=== PATIENT | female | born 1965 | race Caucasian/White ===

== ENCOUNTER 2018-01-29 17:01 | Emergency (ER) | payer BC ==
[2018-01-29 17:13] VITALS: BP 107/72
--- NOTE | 2018-01-29 17:38 | UC ---
Complaint Female HPI - HPI Summary HPI Summary: Patient with history of recurrent UTIs complains of increased urinary frequency , increased urinary urge and burning with urination 6 days. Patient has been able to attempting to manage symptoms with cranberry supplements and hydration. Denies fever, cough, sore throat, CP, SOB, N/V/D, abdominal pain, change in BM , vaginal symptoms. Medical history is none. Patient states she is postmenopausal. - History Of Current Complaint Chief Complaint: UCGU Stated Complaint: BURNING URINATION Time Seen by Provider: 01/29/18 17:17 Hx Obtained From: Patient ?: No Onset/Duration: Gradual Onset Timing: Intermittent Severity Initially: Moderate Severity Currently: Moderate Pain Intensity: 5 Pain Scale Used: 0-10 Numeric Character: Burning Aggravating Factor(s): Urination Alleviating Factor(s): Nothing Associated Signs And Symptoms: Positive: Negative - Allergies/Home Medications Allergies/Adverse Reactions: Allergies Allergy/AdvReac Type Severity Reaction Status Date / Time No Known Allergies Allergy Verified 01/29/18 17:13 Home Medications: Home Medications Ibuprofen TAB* [Advil TAB*] 200 mg PO Q6H PRN 01/29/18 [History Confirmed ] PMH/Surg Hx/FS Hx/Imm Hx Previously Healthy: Yes - Surgical History Surgical History: Yes Surgery Procedure, Year, and Place: R thyroidectomy - Family History Known Family History: Positive: Other - breast cancer - Social History Alcohol Use: Occasionally Substance Use Type: None Smoking Status (MU): Never Smoked Tobacco Review of Systems Constitutional: Negative Skin: Negative Eyes: Negative ENT: Negative Respiratory: Negative Cardiovascular: Negative Gastrointestinal: Negative Genitourinary: Dysuria, Frequency, Urgency Motor: Negative Neurovascular: Negative Musculoskeletal: Negative Neurological: Negative Psychological: Negative Is Patient Immunocompromised?: No All Other Systems Reviewed And Are Negative: Yes Physical Exam Triage Information Reviewed: Yes Appearance: Well-Appearing Vital Signs: Initial Vital Signs Temp 70 F 01/29/18 17:02 Pulse 66 01/29/18 17:02 Resp 16 01/29/18 17:02 BP 107/72 01/29/18 17:02 Pulse Ox 98 01/29/18 17:02 Vital Signs Reviewed: Yes Eye Exam: Normal Neck exam: Normal Respiratory Exam: Normal Cardiovascular Exam: Normal Abdominal Exam: Normal Musculoskeletal Exam: Normal Neurological Exam: Normal Psychological Exam: Normal Skin Exam: Normal Complaint Female Dx - Course Course Of Treatment: Patient with history of recurrent UTIs complains of increased urinary frequency, increased urinary urge and burning with urination 6 days. Patient has been able to attempting to manage symptoms with cranberry supplements and hydration. Denies fever, cough, sore throat, CP, SOB, N/V/D, abdominal pain, change in BM, vaginal symptoms. Medical history is none. Patient states she is postmenopausal. UA non-definitive. Patient symptomatic. Started on Bactrim here at . Rx for same. Vital signs normal. - Differential Dx/Diagnosis Provider Diagnoses: uti Discharge - Sign-Out/Discharge Documenting (check all that apply): Patient Departure All imaging exams completed and their final reports reviewed: No Studies - Discharge Plan Condition: Stable Disposition: HOME Prescriptions: Sulfamethox/Trimethoprim DS* [Bactrim DS 800/160 TAB*] 1 tab PO BID 10 Days #20 tab Patient Education Materials: Urinary Tract Infection in Women (ED) Referrals: No Primary Care Phys,NOPCP [Primary Care Provider] - Additional Instructions: Take antibiotics as directed. Drink plenty of fluids. Return for any new or worsening symptoms - Billing Disposition and Condition Condition: STABLE Disposition: Home - Attestation Statements Provider Attestation: Per institutional requirements, I have reviewed the chart, however, I was not consulted specifically or made aware of this patient by the midlevel provider. I did not personally evaluate, interact with , or disposition this patient.
[2018-01-29] MEDS ORDERED: Sulfamethox/Trimethoprim DS 800/160* TAB PO ONE (18:02)
[2018-01-30] MEDS ORDERED: Sulfamethox/Trimethoprim DS 800/160* TAB PO ONE (17:40)
== END 2018-01-29 18:15 | disposition home or self-care (01) ==
LOC: UCEAST 17:01
DX: B37.49 Other urogenital candidiasis (principal); Z87.440 Personal history of urinary (tract) infections
CPT/HCPCS: 81003; 87077; 87086; 87186; 99202; A9270-GY; G0463

== ENCOUNTER 2018-05-26 14:40 | Emergency (ER) | payer BC ==
--- NOTE | 2018-05-26 15:11 | UC ---
Complaint Female HPI - HPI Summary HPI Summary: 53-year-old woman comes to clinic today with a chief complaint of urinary frequency urgency and dysuria for several days. She's been drinking quite a bit of water and that helps decrease the dysuria but then it has been worsening again. Does have some intermittent pelvic pain with urination otherwise no abdominal pain no flank pain no fevers or chills. Denies any abnormal vaginal discharge or concern of STI. Bowels been working normally. - History Of Current Complaint Stated Complaint: URINARY COMPLAINT Time Seen by Provider: 05/26/18 15:05 - Allergies/Home Medications Allergies/Adverse Reactions: Allergies Allergy/AdvReac Type Severity Reaction Status Date / Time No Known Allergies Allergy Verified 01/29/18 17:13 PMH/Surg Hx/FS Hx/Imm Hx Previously Healthy: Yes - Surgical History Surgical History: Yes Surgery Procedure, Year, and Place: R thyroidectomy - Family History Known Family History: Positive: Other - breast cancer - Social History Alcohol Use: Occasionally Substance Use Type: None Smoking Status (MU): Never Smoked Tobacco Review of Systems All Other Systems Reviewed And Are Negative: Yes Constitutional: Positive: Negative Skin: Positive: Negative Eyes: Positive: Negative ENT: Positive: Negative Respiratory: Positive: Negative Cardiovascular: Positive: Negative Gastrointestinal: Positive: Negative Genitourinary: Positive: Dysuria, Frequency, Urgency. Negative: Vaginal/Penile Discharge Motor: Positive: Negative Neurovascular: Positive: Negative Musculoskeletal: Positive: Negative Neurological: Positive: Negative Psychological: Positive: Negative Is Patient Immunocompromised?: No Physical Exam Triage Information Reviewed: Yes Appearance: Well-Appearing, No Pain Distress, Well-Nourished Vital Signs Reviewed: Yes Eye Exam: Normal Eyes: Positive: Conjunctiva Clear Neck exam: Normal Neck: Positive: Supple Respiratory: Positive: Lungs clear, Normal breath sounds, No respiratory distress Cardiovascular: Positive: RRR Abdomen Description: Positive: Nontender, Soft Musculoskeletal Exam: Normal Musculoskeletal: Positive: Strength Intact, ROM Intact Neurological Exam: Normal Neurological: Positive: Alert, Muscle Tone Normal Psychological Exam: Normal Psychological: Positive: Age Appropriate Behavior Skin Exam: Normal Complaint Female Dx - Course Course Of Treatment: Patient reports that Bactrim helps with her UTIs. She reports last time she did need a full 7 days therefore I prescribed a total of 10 days to be used complete prescription if necessary. We discussed if condition worsens is any questions or concerns she get reevaluated. - Differential Dx/Diagnosis Provider Diagnosis: UTI (urinary tract infection) Discharge - Sign-Out/Discharge Documenting (check all that apply): Patient Departure All imaging exams completed and their final reports reviewed: No Studies - Discharge Plan Condition: Stable Disposition: HOME Prescriptions: Sulfamethox/Trimethoprim DS* [Bactrim DS 800/160 TAB*] 1 tab PO BID #20 tab Patient Education Materials: Urinary Tract Infection in Women (ED) Referrals: [facility] [Outside] Additional Instructions: FOLLOW UP WITH YOUR DOCTOR IF NOT COMPLETELY IMPROVED. GET RECHECKED FOR ANY WORSENING OF YOUR CONDITION OR QUESTIONS OR CONCERNS. - Billing Disposition and Condition Condition: STABLE Disposition: Home
[2018-05-26 15:15] VITALS: BP 100/68
== END 2018-05-26 15:32 | disposition home or self-care (01) ==
LOC: UCEAST 14:40
DX: N39.0 Urinary tract infection, site not specified (principal)
CPT/HCPCS: 81003; 87086; 99202; G0463

== ENCOUNTER 2019-02-04 16:01 | Emergency (ER) | payer BC, OTHER ==
[2019-02-04 16:42] VITALS: BP 114/72
--- NOTE | 2019-02-04 17:12 | UC ---
Complaint Female HPI - HPI Summary HPI Summary: Patient is a 53yo female presenting with UTI symptoms for the past few hours. She notes history of recurrent UTIs. Notes frequency, urgency, and burning with urination. She took Azo 40 minutes prior to visit and states it has relieved her urgency. She denies fever, chills, nausea, vomiting, abdominal pain, and diarrhea. Denies blood in her urine. Denies flank pain. Denies history of kidney stones. - History Of Current Complaint Chief Complaint: UCGU Stated Complaint: frequent urination Hx Obtained From: Patient Hx Last Menstrual Period: post menopause Onset/Duration: Sudden Onset, Lasting Hours Timing: Constant Severity Initially: Moderate Severity Currently: Mild Pain Intensity: 6 Pain Scale Used: 0-10 Numeric - Allergies/Home Medications Allergies/Adverse Reactions: Allergies Allergy/AdvReac Type Severity Reaction Status Date / Time morphine Allergy Unknown Verified 02/04/19 16:38 Reaction Details PMH/Surg Hx/FS Hx/Imm Hx - Surgical History Surgical History: Yes Surgery Procedure, Year, and Place: R thyroidectomy. RIGHT BREAST LUMPECTOMY 1999 - Family History Known Family History: Positive: Other - breast cancer - Social History Alcohol Use: Occasionally Substance Use Type: None Smoking Status (MU): Never Smoked Tobacco Review of Systems All Other Systems Reviewed And Are Negative: No Constitutional: Positive: Negative. Negative: Fever, Chills, Fatigue Gastrointestinal: Negative: Abdominal Pain, Vomiting, Diarrhea, Nausea Genitourinary: Positive: Dysuria, Frequency, Urgency, Vaginal/Penile Burning. Negative: Hematuria Physical Exam Triage Information Reviewed: Yes Appearance: Well-Appearing, No Pain Distress, Well-Nourished Vital Signs: Initial Vital Signs Temp 98.3 F 02/04/19 16:39 Pulse 78 02/04/19 16:39 Resp 18 02/04/19 16:39 BP 114/72 02/04/19 16:39 Pulse Ox 96 02/04/19 16:39 Lab Results 02/04/19 Range/Units 16:45 POC Urine Color Dark yellow POC Urine Clarity Cloudy POC Urine pH 5.5 (5-9) POC Ur Specif Hostetter 1.015 (1.010-1.030) POC Urine Protein 2+ A (Negative) POC Ur Glucose (UA) Negative (Negative) POC Urine Ketones Negative (Negative) POC Urine Blood 3+ A (Negative) POC Urine Nitrite Negative (Negative) POC Urine Bilirubin Negative (Negative) POC Urine Urobilinogen 0.2 (Negative) POC U Leukocyte Esteras 3+ A (Negative) Vital Signs Reviewed: Yes Respiratory Exam: Normal Cardiovascular Exam: Normal Abdomen Description: Positive: Nontender. Negative: CVA Tenderness (R), CVA Tenderness (L), Guarding Bowel Sounds: Positive: Present Complaint Female Dx - Course Course Of Treatment: Patient was instructed to take Keflex as directed for the treatment of her UTI and that she may continue Azo and OTC analgesics as directed. She was also instructed to drink plenty of fluids and to return or go to ER if symptoms persist or worsen, or if she experiences fever, nausea, or vomiting. Patient voiced understanding and agreed with treatment plan. - Differential Dx/Diagnosis Provider Diagnosis: Urinary tract infection Discharge ED - Sign-Out/Discharge Documenting (check all that apply): Patient Departure All imaging exams completed and their final reports reviewed: No Studies - Discharge Plan Condition: Stable Disposition: HOME Prescriptions: Cephalexin CAP* [Keflex CAP*] 500 mg PO BID 5 Days #10 cap Patient Education Materials: Urinary Tract Infection in Women (ED) Referrals: Flory Birmingham MD [Primary Care Provider] - Additional Instructions: Take Keflex as directed for the treatment of your urinary tract infection. You may continue to take azo and OTC pain medications as directed. Drink plenty of fluids. Return if symptoms persist or worsen. Go to ER if you experience fever, nausea, or vomiting. - Billing Disposition and Condition Condition: STABLE Disposition: Home
== END 2019-02-04 17:15 | disposition home or self-care (01) ==
LOC: UCEAST 16:01
DX: N39.0 Urinary tract infection, site not specified (principal); Z87.440 Personal history of urinary (tract) infections; Z88.5 Allergy status to narcotic agent
CPT/HCPCS: 81003; 87077; 87086; 87186; 99212; G0463

== ENCOUNTER 2019-04-17 11:18 | Emergency (ER) | payer BC ==
--- OUTSIDE RECORDS SUMMARY | 2019-04-17 11:22 | XMS REPORT | Summary of Care ---
:1965 Author Organization [facility] Address [address] [address] Care Team Providers Name Role Phone Flory Birmingham MD Primary Care Provider Reason for Referral Refer to Department Only (Routine) Status Reason Specialty Diagnoses / Referred By Referred To Procedures Contact Contact Authorized Physical Therapy Diagnoses Rupture of anterior cruciate ligament of left knee, initial encounter Benjie Zeng Guthrie MD Orthopaedics - [address] [place] [address] Physical [facility] Therapy [address] [place] [id number] [address] Phone: [place], [place] [phone] Fax: Reason for Visit Reason Comments Follow Up Left knee pain. Patient is here to discuss MRI results. Encounter Details Date Type Department Care Team Description 03/22/2019 Office Visit [facility] - Benjie Zeng MD Rupture of anterior [address] cruciate ligament of [address] [place] [address] [address] left knee, [place] [address] encounter ([place] [address] Dx) [phone] Allergies No Known Allergiesdocumented as of this encounter (statuses as of 03/22/2019) Medications Medication Sig Dispensed Refills Start Date End Date Status FLUOXETINE HCL PO Take by mouth. 0 Active IBUPROFEN 200 PO Take by mouth. 0 Active documented as of this encounter (statuses as of 03/22/2019) Active Problems No known active problemsdocumented as of this encounter (statuses as of 2018) Social History Tobacco Use Types Packs/Day Years Used Date Never Smoker 0 Smokeless Tobacco: Never Used Sex Assigned at Date Recorded Not on file Job Start Date Occupation Industry Not on file Not on file Not on file Travel History Travel Start Travel End No recent travel history available. documented as of this encounter Last Filed Vital Signs Vital Sign Reading Time Taken Comments Blood Pressure 122/87 03/22/2019 8:52 AM EDT Pulse 74 03/22/2019 8:52 AM EDT Temperature - - Respiratory Rate - - Oxygen Saturation - - Inhaled Oxygen Concentration - - Weight 83.9 kg (185 lb) 03/22/2019 8:52 AM EDT Height 177.8 cm (5' 10") 03/22/2019 8:52 AM EDT Body Mass Index 26.54 03/22/2019 8:52 AM EDT documented in this encounter Progress Notes Benjie Zeng MD - 03/22/2019 8:45 AM EDT Name: Rafaela Garcia : 1965 Date of Service: 03/22/2019 Chief Complaint Patient presents with Follow Up Left knee pain. Patient is here to discuss MRI results. History of Present Illness: Rafaela Garcia is a 54-y.o. female. The above is noted. Patient is in today for follow-up of leftknee MRI. Patient's was last seen by Sofie Moreland on 2018. The patient's history is that she was walking near a curb and twisted her right ankle and then overcorrected somewhat to injure her left knee. Is available for my review today and has a history of ACL reconstruction performed many years ago in [place]. Physical Examination: Well-developed well-nourished female in minimal discomfort at rest. Patient was examined in the supine position. Patient has full extension, flexion to 125 degrees. No varus or valgus instability. Lorena's testis positive at 25 to 30 degrees flexion. Negative posterior sag or Hoffman sign noted. Patient is neurovascularly intact. BP 122/87 | Pulse 74 | Ht 5' 10" (1.778 m) | Wt 185 lb (83.9 kg) | BMI 26.54 kg/m RI: Reveals small cyclops lesion anterior knee. Adjacent to the ACL and attenuation of the ACL graft. Impression: Is post ACL reconstruction Plan: We will refer to physical therapy and follow-up in 6 weeks emphasizing hamstring strengthening exercises. All questions were answered. There are no Patient Instructions on file for this visit. Author: Benjie Zeng MD 03/22/2019 09:02 documented in this encounter Plan of Treatment Date Type Specialty Care Team Description 04/23/2019 Office Visit Orthopedics Mar Moreland, RPA-C [address] [place] [address] [phone] Name Type Priority Associated Diagnoses Order Schedule REFER TO PHYSICAL Referral Routine Rupture of anterior Expected: 03/22/2019 , THERAPY / REHAB cruciate ligament of Expires: 03/21/2020 left knee, initial encounter Health Maintenance Due Date Last Done Comments PAP SMEAR 1965 DEPRESSION SCREENING 1977 HIV SCREENING 02/13/1980 DIABETES SCREENING 1983 LIPID DISORDER SCREENING 1983 HEPATITIS C SCREENING 2005 MAMMOGRAM (SCREENING) 2005 COLONOSCOPY SCREENING 2015 ZOSTER IMMUNIZATION SERIES (1 of 2) 2015 INFLUENZA VACCINE (#1) 2019 HPV IMMUNIZATION SERIES Aged Out No longer eligible based on patient's age to complete this topic MENINGOCOCCAL VACCINE IMM Aged Out No longer eligible based on patient's age to complete this topic PNEUMOCOCCAL 0-64 YRS Aged Out No longer eligible based on patient's age to complete this topic documented as of this encounter Results Not on filedocumented in this encounter Visit Diagnoses Diagnosis Rupture of anterior cruciate ligament of left knee, initial encounter - Primary documented in this encounter (Home) [place] [address] documented as of this encounter
--- OUTSIDE RECORDS SUMMARY | 2019-04-17 11:22 | XMS REPORT | Summary of Care ---
:1965 Author Organization [facility] Address [address] [address] Care Team Providers Name Role Phone Flory Birmingham MD Primary Care Provider Reason for Referral MRI/CAT/PET Scan (Routine) Status Reason Specialty Diagnoses / Referred By Referred To Procedures Contact Contact Pending Review Diagnoses Chronic pain of left knee Mar Moreland, Procedures MR LOWER EXTREMITY JOINT WO CONTRAST LEFT RPA-C [address] [facility] [place] [address] Reason for Visit Reason Comments New Patient Left knee pain. DOI: 02-23-19 Patient was walking near a curb and twisted her right ankle and over corrected causing her to yonatan turn wrong on the left knee. Encounter Details Date Type Department Care Team Description 02/28/2019 Office Visit [facility] - Mar Moreland, Chronic pain of left Bantam RPA-C knee (Primary Dx) [address] [facility] [address] [facility] [address] [facility] [place] [address] [phone] Allergies No Known Allergiesdocumented as of this encounter (statuses as of 02/28/2019) Medications Medication Sig Dispensed Refills Start Date End Date Status FLUOXETINE HCL PO Take by mouth. 0 Active IBUPROFEN 200 PO Take by mouth. 0 Active documented as of this encounter (statuses as of 02/28/2019) Active Problems No known active problemsdocumented as [...] Sign Reading Time Taken Comments Blood Pressure 125/71 02/28/2019 10:06 AM EDT Pulse 74 02/28/2019 10:06 AM EDT Temperature - - Respiratory Rate - - Oxygen Saturation - - Inhaled Oxygen Concentration - - Weight 83.9 kg (185 lb) 02/28/2019 10:06 AM EDT Height 177.8 cm (5' 10") 02/28/2019 10:06 AM EDT Body Mass Index 26.54 02/28/2019 10:06 AM EDT documented in this encounter Progress Notes Mar Moreland, GAGAN-C - 02/28/2019 10:00 AM EDT Name: Rafaela Garcia : 1965 Date of Service: 02/28/2019 Referring Provider: Terrence Primary Care Provider: Flory Birmingham Chief Complaint Patient presents with New Patient Left knee pain. DOI: 02-23-19 Patient was walking near a curb and twisted her right ankle and over corrected causing her to yonatan turn wrong on the left knee. History of Present Illness: Rafaela Garcia is a 54-y.o. female who presents for a new visit. The patient presents with left knee injury. Current symptoms include: pain: intensity 4/10, swelling: intensity 2/10 and mechanical symptom(s) of giving out and instability. Onset of the symptoms was 02/23/19 Inciting event: Twisted Coming off a curb Aggravating symptoms:going up and down stairs, walking. Patient's overall course: gradually worsening. Patient has had prior lower extremity problems. Anterior cruciate ligament Reconstruction 18 yearsago in [place] . Previous visits for this problem: none. Evaluation to date: none. Treatment to date: rest, ice: ineffective, [id number] analgesics: ineffective. Past Medical History: Diagnosis Date ACL (anterior cruciate ligament) tear History reviewed. No pertinent surgical history. Current Outpatient Medications Medication Sig FLUOXETINE HCL PO Take by mouth. IBUPROFEN 200 PO Take by mouth. No current facility-administered medications for this visit. . No Known Allergies Social History Socioeconomic History Marital status: Spouse name: Not on file Number of children: Not on file Years of education: Not on file Highest education level: Not on file Occupational History Not on file Social Needs Financial resource strain: Not on file Food insecurity: Worry: Not on file Inability: Not on file Transportation needs: Medical: Not on file Non-medical: Not on file Tobacco Use Smoking status: Never Smoker Smokeless tobacco: Never Used Substance and Sexual Activity Alcohol use: Not on file Drug use: Not on file Sexual activity: Not on file Lifestyle Physical activity: Days per week: Not on file Minutes per session: Not on file Stress: Not on file Relationships Social connections: Talks on phone: Not on file Gets together: Not on file Attends muslim service: Not on file Active member of club or organization: Not on file Attends meetings of clubs or organizations: Not on file Relationship status: Not on file Intimate partner violence: Fear of current or ex partner: Not on file Emotionally abused: Not on file Physically abused: Not on file Forced sexual activity: Not on file Other Topics Concern Not on file Social History Narrative Not on file History reviewed. No pertinent family history. ROS: Review of systems intake completed by clinical staff. I have reviewed and agree with their documentation. Physical Examination: BP 125/71 | Pulse 74 | Ht 5' 10" (1.778 m) | Wt 185 lb (83.9 kg) | BMI 26.54 kg/m Patient was examined in the supine position. She has a Positive effusion. Patient has extension 0, flexion 120. Patient has tenderness on palpation of the medial joint line. Patient has not tendernesson palpation of the lateral joint line. Patient has Positive Anderson's test with respect to the medial joint line. Patient has Positive Lorena's test at 25 - 30 degrees flexion. Patient has NegativeGodfrey's test. Patient has no increased external rotation at 90 degrees flexion. Patient has no increased external rotation at 0 degrees extension. negative varus stress test. negative valgus stress test. Nv intact to the Left lower extremity. Patient walks without an antalgic gait with respect to the left extremity. Left ankle and hip range of motion are full and pain free. The right knee exam is normal. X-Ray: X-rays of left knee, Ap, lateral skyline and notch views were obtained. moderate changes are noted in the medial compartment;minimal changes are noted in the lateral compartment;minimal are noted in the patella-femoral compartment. Impression: No diagnosis found. Plan: The risks and benefits of my recommendations, as well as other treatment options along with their benefits, risks, and failure rates were discussed with the patient today. All questions were answered. Work up: MRI. Follow up: After mri scan . Author: TAYO Blue 02/28/2019 10:14 documented in this encounter Plan of Treatment Name Type Priority Associated Diagnoses Order Schedule MR LOWER EXTREMITY Imaging Routine Chronic pain of left Expected: 2018, JOINT WO CONTRAST LEFT knee Expires: 02/28/2020 Health Maintenance Due Date Last Done Comments PAP SMEAR 1965 DEPRESSION SCREENING 1977 HIV SCREENING 02/13/1980 LIPID DISORDER SCREENING 1983 HEPATITIS C SCREENING [...] filedocumented in this encounter Visit Diagnoses Diagnosis Chronic pain of left knee - Primary Pain in joint, lower leg documented in this encounter (Home) [place] [address] documented as of this encounter
[2019-04-17 12:08] VITALS: BP 102/69
--- NOTE | 2019-04-17 13:03 | UC ---
Abdominal Pain Female HPI - HPI Summary HPI Summary: The patient is a 54-year-old female who was in her usual state of good health and awoke this morning feeling fine. She had her breakfast and then about 20 minutes later had the acute onset of severe left lower quadrant abdominal pain. The pain came in waves and was severe. She had multiple episodes of nausea and vomiting and felt chilled. While in the waiting room waiting to be seen her symptoms resolved. She has no history of kidney stones. She denies any history of diverticulitis. She has had no fever. She denies any UTI symptoms. - History of Current Complaint Chief Complaint: UCGI Stated Complaint: ABDOMINAL PAIN Time Seen by Provider: 04/17/19 12:53 Hx Obtained From: Patient Hx Last Menstrual Period: post menopause Onset/Duration: Sudden Onset, Lasting Hours Timing: Constant Severity Initially: Severe Severity Currently: Mild Pain Intensity: 1 Pain Scale Used: 0-10 Numeric Location: Discrete At: LLQ Radiates: No Character: Colicy, Cramping, Sharp Aggravating Factor(s): Nothing Alleviating Factor(s): Spontaneous Resolution Associated Signs and Symptoms: Positive: Nausea, Vomiting. Negative: Diaphoresis, Fever, Cough, Chest Pain, Dizzy Female Torso: 1 - pain was located here Allergies/Adverse Reactions: Allergies Allergy/AdvReac Type Severity Reaction Status Date / Time morphine Allergy Itching Verified 04/17/19 11:59 PMH/Surg Hx/FS Hx/Imm Hx Previously Healthy: Yes - Surgical History Surgical History: Yes Surgery Procedure, Year, and Place: R thyroidectomy. RIGHT BREAST LUMPECTOMY 1999 - Family History Known Family History: Positive: Hypertension, Other - breast cancer - Social History Alcohol Use: Weekly Substance Use Type: None Smoking Status (MU): Never Smoked Tobacco Review of Systems All Other Systems Reviewed And Are Negative: Yes Constitutional: Positive: Negative Skin: Positive: Negative Eyes: Positive: Negative ENT: Positive: Negative Respiratory: Positive: Negative Cardiovascular: Positive: Negative Gastrointestinal: Positive: Abdominal Pain, Vomiting, Nausea Genitourinary: Positive: Negative Motor: Positive: Negative Neurovascular: Positive: Negative Musculoskeletal: Positive: Negative Neurological: Positive: Negative Psychological: Positive: Negative Physical Exam Triage Information Reviewed: Yes Appearance: Well-Appearing, No Pain Distress, Well-Nourished, Ill-Appearing Vital Signs: Initial Vital Signs Temp 98.6 F 04/17/19 12:01 Pulse 75 04/17/19 12:01 Resp 16 04/17/19 12:01 BP 102/69 04/17/19 12:01 Pulse Ox 100 04/17/19 12:01 Vital Signs Reviewed: Yes Eyes: Positive: Conjunctiva Clear ENT: Positive: Hearing grossly normal, Uvula midline. Negative: Nasal congestion, Nasal drainage, Tonsillar exudate, Trismus, Muffled voice, Hoarse voice Dental Exam: Normal Neck: Positive: Supple, Nontender, No Lymphadenopathy Respiratory: Positive: Lungs clear, Normal breath sounds, No respiratory distress, No accessory muscle use Cardiovascular: Positive: RRR, No Murmur, Pulses Normal Abdomen Description: Positive: Nontender, No Organomegaly. Negative: CVA Tenderness (R), CVA Tenderness (L) Bowel Sounds: Positive: Present Musculoskeletal: Positive: ROM Intact, No Edema Neurological: Positive: Alert Psychological Exam: Normal Skin Exam: Normal Diagnostics - Laboratory Lab Results: UA ++ blood - Radiology No standard instances Radiology Interpretation Completed By: Radiologist Summary of Radiographic Findings: IMPRESSION: 1. THERE IS A 2.5 MM CALCULUS AT THE LEFT URETEROVESICAL JUNCTION CAUSING MILD HYDRONEPHROSIS. 2. THERE ARE MULTIPLE HYPODENSE HEPATIC LESIONS. RECOMMEND STARTING WITH AN OUTPATIENT HEPATIC ULTRASOUND FOR FURTHER EVALUATION. Re-Evaluation - Re-Evaluation First Eval Change: Improved - pain free Abd Pain Female Course/Dx - Course Course Of Treatment: advised to take 600mg ibuprofen 4x day as needed - Differential Dx/Diagnosis Provider Diagnosis: Renal calculus, left, Hepatic cyst Discharge ED - Sign-Out/Discharge Documenting (check all that apply): Patient Departure All imaging exams completed and their final reports reviewed: Yes - Discharge Plan Condition: Stable Disposition: HOME Prescriptions: Ondansetron TAB* [Zofran Tab*] 4 mg PO Q6H PRN #6 tab PRN Reason: Nausea Patient Education Materials: Kidney Stones (ED) Referrals: Flory Birmingham MD [Primary Care Provider] - 1 Week Additional Instructions: IMPRESSION: 1. THERE IS A 2.5 MM CALCULUS AT THE LEFT URETEROVESICAL JUNCTION CAUSING MILD HYDRONEPHROSIS. 2. THERE ARE MULTIPLE HYPODENSE HEPATIC LESIONS. RECOMMEND STARTING WITH AN OUTPATIENT HEPATIC ULTRASOUND FOR FURTHER EVALUATION. this sized stone should pass to ER for unrelenting pain/fever/persistent vomiting - Billing Disposition and Condition Condition: STABLE Disposition: Home
== END 2019-04-17 14:25 | disposition home or self-care (01) ==
LOC: UCEAST 11:18
DX: N13.2 Hydronephrosis with renal and ureteral calculous obstruction (principal); K76.89 Other specified diseases of liver; R11.2 Nausea with vomiting, unspecified; Z88.5 Allergy status to narcotic agent
CPT/HCPCS: 74176; 81003; 99212; G0463